=== PATIENT | male | born 1980 | race Caucasian/White ===

== ENCOUNTER 2018-09-29 04:19 | Emergency (ER) | payer OTHER ==
[2018-09-29] MEDS ORDERED: Sodium Chloride 0.9% 1,000 ML IV ONE (04:32)
[2018-09-29] MEDS ORDERED: LORazepam 2 MG/ML SDV IVPUSH ONE (04:32)
[2018-09-29] MEDS ORDERED: Sodium Chloride 0.9% 10 ML Syringe FLUSH PRN (04:32)
[2018-09-29] MEDS ORDERED: Sodium Chloride 0.9% 2.5 ML Syringe FLUSH PRN (04:32)
[2018-09-29] MEDS ORDERED: Ondansetron 4 MG/2 ML SDV IVPUSH ONE (04:34)
--- NOTE | 2018-09-29 04:34 | EDM.PDOC ---
ED HPI GENERAL MEDICAL PROBLEM - General Chief Complaint: Behavioral/Psych Stated Complaint: PANIC ATTACK Time Seen by Provider: 09/29/18 04:27 - History of Present Illness INITIAL COMMENTS - FREE TEXT/NARRATIVE: HISTORY AND PHYSICAL: History of present illness: The patient is a 37-year-old male with a history of anxiety and panic attacks who normally takes Klonopin as needed but has not had his prescription for the last 1 week and presents this evening with several hours of anxiety and panic attack symptoms. The patient is very vague in my history and says "I don't know " when I try to pinpoint time of onset and to determine the symptoms he is experiencing. He says the symptoms he is feeling is very similar but usually he intercept them by taking a Klonopin and the escalator because he does not have that. He says he feels slightly nauseated and he feels tingling in his hands and face and he feels like his heart is going quickly. He has no preceding systemic complaints of fever chills nausea vomiting chest pain or shortness of breath. He denies alcohol and drug use but he does chew tobacco. The patient is not very forthcoming with [place]'s events but says that no new stressors occurred and he maybe did not eat or drink as much as usual today. Review of systems: As per history of present illness and below otherwise all systems reviewed and negative. Past medical history: As per history of present illness and as reviewed below otherwise noncontributory. Surgical history: As per history of present illness and as reviewed below otherwise noncontributory. Social history: No reported history of drug or alcohol abuse. Family history: As per history of present illness and as reviewed below otherwise noncontributory. Physical exam: General: Well-developed well-nourished man who is nontoxic and vital signs are noted by me. He prefers to lay in bed and keep his eyes closed and is very flat his conversation and a fact. HEENT: Atraumatic, normocephalic, pupils reactive, negative for conjunctival pallor or scleral icterus, mucous membranes moist, throat clear, neck supple, nontender, trachea midline. Sclera are not injected there is no cervical adenopathy or nuchal rigidity Lungs: Clear to auscultation, breath sounds equal bilaterally, chest nontender. Heart: S1S2, regular rate and rhythm on my evaluation but no overt murmurs Abdomen: Soft, nondistended, nontender. Negative for masses or hepatosplenomegaly. NABS Pelvis: Deferred Genitourinary: Deferred. Rectal: Deferred. Extremities: Atraumatic, negative for cords or calf pain. Neurovascular unremarkable. Full range of motion no pedal edema Neuro: Awake, alert, oriented. Cranial nerves II through XII unremarkable. Cerebellum unremarkable. Motor and sensory unremarkable throughout. Exam nonfocal. Gait normal into the ED Diagnostics: EKG Therapeutics: IV fluids Ativan and Zofran--- all cancelled Klonopin orally After the medications were ordered and an IV was started the patient is now refusing IV Zofran and IV Ativan saying that the Ativan doesn't work and he just wants a pill either Klonopin or Xanax. I tried to explain to him that the Ativan might take the edge off and through the IV and that I can still give him an oral Klonopin he is being very evasive and obstinate saying that he wants help but he is refusing what I have to offer. I will order a dose of oral Klonopin and plan for discharge and remove the IV Impression: Panic attack with history of anxiety Definitive disposition and diagnosis as appropriate pending reevaluation and review of above. no pain Pain Score (Numeric/FACES): 0 - Related Data Allergies Allergy/AdvReac Type Severity Reaction Status Date / Time No Known Allergies Allergy Verified 09/29/18 04:27 Home Meds: Home Meds ClonazePAM [KlonoPIN] 0.5 mg PO 09/29/18 [History] ED ROS GENERAL - Review of Systems Review Of Systems: ROS reveals no pertinent complaints other than HPI. ED EXAM, GENERAL - Physical Exam Exam: See Below (See dictation) Course - Vital Signs Last Recorded V/S: Last Vital Signs Temp 36.3 C 09/29/18 04:28 Pulse 68 09/29/18 04:28 Resp 22 H 09/29/18 04:28 BP 137/85 09/29/18 04:28 Pulse Ox 99 09/29/18 04:28 - Orders/Labs/Meds Orders: Active Orders 24 hr Category Date Time Status EKG Documentation Completion [RC] STAT Care 09/29/18 04:32 Active Sodium Chloride 0.9% [Normal Saline] 1,000 ml Med 09/29/18 04:32 Stop Req IV STAT Sodium Chloride 0.9% [Saline Flush] Med 09/29/18 04:32 Stop Req 10 ml FLUSH ASDIRECTED PRN Sodium Chloride 0.9% [Saline Flush] Med 09/29/18 04:32 Stop Req 2.5 ml FLUSH ASDIRECTED PRN Meds: Medications Discontinued Medications Generic Name Dose Route Start Last Admin Trade Name Freq PRN Reason Stop Dose Admin Clonazepam 1 mg 09/29/18 04:46 Klonopin PO 09/29/18 04:47 ONETIME ONE Sodium Chloride 1,000 mls @ 999 mls/hr 09/29/18 04:32 Normal Saline IV 09/29/18 05:32 STAT ONE Lorazepam 1 mg 09/29/18 04:32 Ativan IVPUSH 09/29/18 04:33 ONETIME ONE Ondansetron HCl 4 mg 09/29/18 04:34 Zofran IVPUSH 09/29/18 04:35 ONETIME ONE Sodium Chloride 10 ml 09/29/18 04:32 Saline Flush FLUSH ASDIRECTED PRN Keep Vein Open Sodium Chloride 2.5 ml 09/29/18 04:32 Saline Flush FLUSH ASDIRECTED PRN Keep Vein Open Departure - Departure Time of Disposition: 04:52 Disposition: Home, Self-Care 01 Condition: Good Clinical Impression: Anxiety, Panic disorder - Discharge Information Referrals: PCP,None [Primary Care Provider] - Forms: ED Department Discharge Additional Instructions: The following information is given to patients seen in the emergency department who are being discharged to home. This information is to outline your options for follow-up care. We provide all patients seen in our emergency department with a follow-up referral. The need for follow-up, as well as the timing and circumstances, are variable depending upon the specifics of your emergency department visit. If you don't have a primary care physician on staff, we will provide you with a referral. We always advise you to contact your personal physician following an emergency department visit to inform them of the circumstance of the visit and for follow-up with them and/or the need for any referrals to a consulting specialist. The emergency department will also refer you to a specialist when appropriate. This referral assures that you have the opportunity for followup care with a specialist. All of these measure are taken in an effort to provide you with optimal care, which includes your followup. Under all circumstances we always encourage you to contact your private physician who remains a resource for coordinating your care. When calling for followup care, please make the office aware that this follow-up is from your recent emergency room visit. If for any reason you are refused follow-up, please contact the [facility] emergency department at and ask to speak to the emergency department charge nurse. [facility] Primary care- Internal Medicine and Family [address] [address] Push hydration and avoid caffeinated products. Use the Klonopin you have been prescribed as needed but only take when you're home as it may cause drowsiness. If you're remaining in the area these contact one of our clinic providers and follow-up in the clinic using resources given to above. Return to ER as needed and as discussed. - My Orders Last 24 Hours: My Active Orders 09/29/18 04:32 EKG Documentation Completion [RC] STAT Sodium Chloride 0.9% [Normal Saline] 1,000 ml IV STAT Sodium Chloride 0.9% [Saline Flush] 10 ml FLUSH ASDIRECTED PRN Sodium Chloride 0.9% [Saline Flush] 2.5 ml FLUSH ASDIRECTED PRN - Assessment/Plan Last 24 Hours: My Active Orders 09/29/18 04:32 EKG Documentation Completion [RC] STAT Sodium Chloride 0.9% [Normal Saline] 1,000 ml IV STAT Sodium Chloride 0.9% [Saline Flush] 10 ml FLUSH ASDIRECTED PRN Sodium Chloride 0.9% [Saline Flush] 2.5 ml FLUSH ASDIRECTED PRN
[2018-09-29] MEDS ORDERED: ClonazePAM 1 MG Tab PO ONE (04:46)
== END 2018-09-29 05:29 | disposition home or self-care (01) ==
LOC: MW.ED 04:19
DX: F41.0 Panic disorder [episodic paroxysmal anxiety] (principal); Z79.899 Other long term (current) drug therapy
CPT/HCPCS: 93005; 99283; A9270